=== PATIENT | female | born 1950 ===

== ENCOUNTER 2017-12-27 12:41 | Emergency (ER) | payer MEDICARE ==
[2017-12-27] MEDS ORDERED: Sodium Chloride 0.9% 500 ML IV STA (13:47)
[2017-12-27 14:28] LABS: BASO % 0.2 % (0.0-2.0); EOS # 0.3 K/uL (0.0-0.7); EOS % 3.1 % (0.0-4.0); HEMOGLOBIN 12.4 g/dL (12.0-16.0); LYMPH # 2.1 K/uL (1.0-4.3); LYMPH % 20.7 % (20.0-40.0); MEAN CELL VOLUME 90.9 fl (81.0-99.0); MEAN CORPUSCULAR HEMOGLOBIN 30.2 pg (27.0-31.0); MEAN CORPUSCULAR HGB CONC 33.2 g/dL (33.0-37.0); MEAN PLATELET VOLUME 7.6 fl (7.2-11.7); MONO # 0.5 K/uL (0.0-0.8); MONO % 5.2 % (0.0-10.0); NEUT # 7.2 K/uL (1.8-7.0); NEUT % 70.8 % (50.0-75.0); RBC 4.11 Mil/uL (3.80-5.20); RED CELL DISTRIBUTION WIDTH 14.7 % (11.5-14.5); WHITE BLOOD COUNT 10.1 K/uL (4.8-10.8)
[2017-12-27 14:42] LABS: ALBUMIN 3.9 g/dL (3.5-5.0); ALT/SGPT 26 U/L (9-52); AST/SGOT 24 U/L (14-36); BLOOD UREA NITROGEN 17 mg/dl (7-17); CALCIUM 9.3 mg/dL (8.4-10.2); GFR AFRICAN-AMERICAN > 60; GFR NON-AFRICAN AMERICAN > 60; LIPASE 68 U/L (23-300)
--- NOTE | 2017-12-27 15:23 | ED PDOC ---
HPI: Abdomen Time Seen by Provider: 12/27/17 13:39 Chief Complaint (Nursing): Abdominal Pain Chief Complaint (Provider): abdominal pain History Per: Patient History/Exam Limitations: no limitations Onset/Duration Of Symptoms: Hrs (this morning) Current Symptoms Are (Timing): Still Present Location Of Pain/Discomfort: Epigastric Associated Symptoms: Vomiting, Diarrhea (x4) Additional Complaint(s): Mildred Guzmán is a 67 year old female, with a past medical history of HTN and gastritis, who presents to the emergency department for evaluation of epigastric pain onset since this morning associated with nausea and x4 episodes of diarrhea. Patient took Motrin and Omeprazole with mild improvement of symptoms. Patient states on August she went to [facility] and developed similar symptoms there. They did bloodwork and was advised to go to the hospital if symptoms developed again. She denies any fever, chills, vomiting or surgeries to the abdomen. No further medical complaints. PMD: Amairani Rios Past Medical History Reviewed: Historical Data, Nursing Documentation, Vital Signs Vital Signs: Last Vital Signs Temp 98.3 F 12/27/17 19:33 Pulse 71 12/27/17 19:33 Resp 18 12/27/17 19:33 BP 128/71 12/27/17 19:33 Pulse Ox 99 12/27/17 19:33 - Medical History PMH: Asthma, Gastritis, HTN, Hyperlipidemia, Hypothyroidism - Surgical History Surgical History: Denies: Pacemaker - Family History Family History: States: Unknown Family Hx - Home Medications Home Medications: Ambulatory Orders Medication Instructions Recorded Fenofibrate [Tricor] 145 mg PO DAILY 08/25/13 Hydrochlorothiazide 25 mg PO DAILY 08/25/13 Ibuprofen 600 mg PO TID PRN 08/25/13 Levothyroxine Sodium 25 mcg PO DAILY 08/25/13 [Levothyroxine] Lorazepam 1 mg PO HS PRN 08/25/13 Pantoprazole [Protonix] 40 mg PO DAILY 08/25/13 Potassium Chloride [Micro-K Ls] 20 meq PO DAILY 08/25/13 Acetaminophen/Hydrocodone Bi 1 tab PO Q6H PRN 08/26/13 [Vicodin 300 mg-5 mg] Dicyclomine [Bentyl] 20 mg PO Q12 PRN #20 tab 07/16/15 Ondansetron ODT [Zofran ODT] 4 mg PO Q6H PRN #16 odt 07/16/15 Sucralfate [Carafate] 1 gm PO TID PRN #30 tablet 12/27/17 - Allergies Allergies/Adverse Reactions: Allergies Allergy/AdvReac Type Severity Reaction Status Date / Time No Known Allergies Allergy Verified 12/27/17 12:51 Review of Systems ROS Statement: Except As Marked, All Systems Reviewed And Found Negative Constitutional: Negative for: Fever, Chills Gastrointestinal: Positive for: Nausea, Abdominal Pain, Diarrhea (x4). Negative for: Vomiting Physical Exam - Reviewed Nursing Documentation Reviewed: Yes Vital Signs Reviewed: Yes - Physical Exam Comments: GENERAL APPEARANCE: Patient is awake, alert, oriented x 3, in no acute distress. SKIN: Warm, dry; (-) cyanosis. EYES: (-) conjunctival pallor, (-) scleral icterus. ENMT: Mucous membranes moist. NECK: (-) tenderness, (-) stiffness, (-) lymphadenopathy. CHEST AND RESPIRATORY: (-) rales, (-) rhonchi, (-) wheezes; breath sounds equal bilaterally. HEART AND CARDIOVASCULAR: (-) irregularity; (-) murmur, (-) gallop. ABDOMEN AND GI: (-) distention. Bowel sounds active; (-) epigastric tenderness , (-) guarding, (-) rebound, (-) palpable masses, (-) CVA tenderness. (-) Goodwin 's sign EXTREMITIES: (-) deformity, (-) edema, (+) distal pulses. NEURO AND PSYCH: Mental status as above; (-) focal findings. - Laboratory Results Result Diagrams: 12/27/17 14:20 12/27/17 14:20 - ECG O2 Sat by Pulse Oximetry: 98 (RA) Pulse Ox Interpretation: Normal Medical Decision Making Medical Decision Making: Time: 13:39 Initial Impression: Abdominal pain Initial Plan: --CMP --Lipase --Urine dipstick --CBC w/ differential --Sodium Chloride 500 ml IV 500 mls/hr --Pepcid 20 mg IVP --Zofran Inj 4 mg IVP --Abdomen Limited (GB Included) [US] --Reevaluation Uhcg (-) Udip (-) nitrates/leuks, (+) blood Labs reviewed and wnl. 18:00 Abdominal ultrasound FINDINGS: LIVER: Measures 16.8 cm in length. Normal echogenicity of the liver parenchyma. No mass. No intrahepatic bile duct dilatation. GALLBLADDER: Unremarkable. No gallstones. COMMON BILE DUCT: Measures 5 mm. No stones. No dilatation. PANCREAS: Unremarkable as visualized. No mass. No ductal dilatation. RIGHT KIDNEY: Measures 10.5 cm in length. Normal echogenicity. No calculus, mass, or hydronephrosis. AORTA: No aneurysmal dilatation. IVC: Unremarkable. OTHER FINDINGS: None . IMPRESSION: Unremarkable examination. No evidence of cholelithiasis or cholecystitis. On re-evaluation, patient reports improvement of symptoms, denies any abdominal pain and nausea. On exam, patient remains AAOx3, in no acute distress. Abdomen soft, non-tender, no guarding. VS: BP 128/71 P 71 R 18 T 98 O2sat 99%RA. Patient is stable for discharge. Diagnostic results d/w the patient in great detail. Diagnosis of dyspepsia d/w the patient. Based on history, exam and diagnostic results, plan will be for outpatient follow up. Patient instructed to follow-up with pmd and GI in 1-2 days without fail. Continue taking omeprazole. Advised to take medication as prescribed. Return to the emergency room at any time for any new or worsening symptoms. Patient states she fully agrees with and understands discharge instructions. States that she agrees with the plan and disposition. Verbalized and repeated discharge instructions and plan. I have given the patient opportunity to ask any additional questions. ----- Scribe Attestation: Documented by Miles Rodriguez, acting as a scribe for Pati Medrano PA-C. Provider Scribe Attestation: All medical record entries made by the Scribe were at my direction and personally dictated by me. I have reviewed the chart and agree that the record accurately reflects my personal performance of the history, physical exam, medical decision making, and the department course for this patient. I have also personally directed, reviewed, and agree with the discharge instructions and disposition. Disposition - Clinical Impression Clinical Impression: Abdominal pain, Dyspepsia - Patient ED Disposition Is Patient to be Admitted: No Counseled Patient/Family Regarding: Studies Performed, Diagnosis, Need For Followup, Rx Given - Disposition Disposition: Routine/Home Disposition Time: 19:15 Condition: STABLE Additional Instructions: Thank you for letting us take care of you today. You were treated for abdominal pain, dyspepsia. The emergency medical care you received today was directed towards the acute presenting symptoms. If you were prescribed any medication, please fill it and give as directed. It may take several days for your symptoms to resolve. Return to the Emergency Department at any time if symptoms worsen, do not improve, or if any other problems arise. Please contact your doctor in 2 days for re-evaluation and follow up. Bring any paperwork you were given at discharge with you along with any medications to your follow up visit. Our treatment cannot replace ongoing medical care by a primary care provider (PCP) outside of the emergency department. Thank you for allowing the [facility] team to be part of your care today. Prescriptions: Sucralfate [Carafate] 1 gm PO TID PRN #30 tablet PRN Reason: Other Instructions: Dyspepsia, Acute Abdomen (Belly Pain), Adult (DC) Forms: [employer] (Japanese) Print Language: AUSTRIAN
--- NOTE | 2017-12-27 18:01 | US ---
Date of service: 12/27/2017 HISTORY: epigastric pain, r/o biliary colic COMPARISON: None. TECHNIQUE: Sonographic evaluation of the right upper quadrant of the abdomen. FINDINGS: LIVER: Measures 16.8 cm in length. Normal echogenicity of the liver parenchyma. No mass. No intrahepatic bile duct dilatation. GALLBLADDER: Unremarkable. No gallstones. COMMON BILE DUCT: Measures 5 mm. No stones. No dilatation. PANCREAS: Unremarkable as visualized. No mass. No ductal dilatation. RIGHT KIDNEY: Measures 10.5 cm in length. Normal echogenicity. No calculus, mass, or hydronephrosis. AORTA: No aneurysmal dilatation. IVC: Unremarkable. OTHER FINDINGS: None . IMPRESSION: Unremarkable examination. No evidence of cholelithiasis or cholecystitis.
[2017-12-27 19:34] VITALS: BP 128/71; PULSE 71; RESP 18; TEMP 98.3
[2017-12-28 11:27] VITALS: O2SAT 98
== END 2017-12-27 19:35 | disposition home or self-care (01) ==
LOC: H.ER 12:41
DX: R10.13 Epigastric pain (principal); I10 Essential (primary) hypertension; J45.909 Unspecified asthma, uncomplicated
CPT/HCPCS: 76705; 80053; 83690; 85025; 96374; 96375; 99285; J2405; J7030

== ENCOUNTER 2018-02-20 08:25 | Emergency (ER) | payer MEDICARE, MEDICAID ==
[2018-02-20 08:34] VITALS: RESP 17; TEMP 98.1; O2SAT 98; BMI 35.5
[2018-02-20] MEDS ORDERED: Sodium Chloride 0.9% 1,000 ML IV STA (09:10)
--- NOTE | 2018-02-20 09:17 | ED PDOC ---
Syncope/Near Syncope/Dizziness Time Seen by Provider: 02/20/18 08:53 Chief Complaint (Nursing): Dizziness/Lightheaded Chief Complaint (Provider): Dizziness/Lightheaded History Per: Patient History/Exam Limitations: no limitations Onset/Duration Of Symptoms: Hrs Fall Associated With With Symptoms: No Additional Complaint(s): 67 years old female with history of vertigo and hypertension presents to ER for evaluation of dizziness associated with nausea, vomiting and headache onset this morning. Patient reports symptoms worsen when leaning or turning head. She denies any chest pain, fall or loss of consciousness. PMD: Amairani Rios Past Medical History Reviewed: Historical Data, Nursing Documentation, Vital Signs Vital Signs: Last Vital Signs Temp 98.1 F 02/20/18 08:34 Pulse 90 02/20/18 08:34 Resp 17 02/20/18 08:34 BP 186/95 H 02/20/18 08:36 Pulse Ox 98 02/20/18 08:34 - Medical History PMH: Arthritis, Asthma, Gastritis, HTN, Hyperlipidemia, Hypothyroidism Other PMH: Vertigo - Surgical History Surgical History: No Surg Hx Denies: Pacemaker - Family History Family History: States: Unknown Family Hx - Social History Current smoker - smoking cessation education provided: No Alcohol: None Drugs: Denies - Home Medications Home Medications: Ambulatory Orders Medication Instructions Recorded Fenofibrate [Tricor] 145 mg PO DAILY 08/25/13 Hydrochlorothiazide 25 mg PO DAILY 08/25/13 Ibuprofen 600 mg PO TID PRN 08/25/13 Levothyroxine Sodium 25 mcg PO DAILY 08/25/13 [Levothyroxine] Lorazepam 1 mg PO HS PRN 08/25/13 Pantoprazole [Protonix] 40 mg PO DAILY 08/25/13 Potassium Chloride [Micro-K Ls] 20 meq PO DAILY 08/25/13 Acetaminophen/Hydrocodone Bi 1 tab PO Q6H PRN 08/26/13 [Vicodin 300 mg-5 mg] Dicyclomine [Bentyl] 20 mg PO Q12 PRN #20 tab 07/16/15 Ondansetron ODT [Zofran ODT] 4 mg PO Q6H PRN #16 odt 07/16/15 Sucralfate [Carafate] 1 gm PO TID PRN #30 tablet 12/27/17 Meclizine [Meclizine*] 25 mg PO Q8 #15 tab 02/20/18 - Allergies Allergies/Adverse Reactions: Allergies Allergy/AdvReac Type Severity Reaction Status Date / Time shellfish derived Allergy SWELLING Verified 02/20/18 08:36 Review of Systems ROS Statement: Except As Marked, All Systems Reviewed And Found Negative Constitutional: Negative for: Other (loss of consciousness) Cardiovascular: Negative for: Chest Pain Gastrointestinal: Positive for: Nausea, Vomiting Neurological: Positive for: Headache, Dizziness Physical Exam - Reviewed Nursing Documentation Reviewed: Yes Vital Signs Reviewed: Yes - Physical Exam Appears: Positive for: Non-toxic, No Acute Distress Head Exam: Positive for: ATRAUMATIC, NORMOCEPHALIC Skin: Positive for: Normal Color, Warm, Dry Eye Exam: Positive for: Normal appearance, EOMI, PERRL Neck: Positive for: Normal, Painless ROM, Supple Cardiovascular/Chest: Positive for: Regular Rate, Rhythm. Negative for: Murmur Respiratory: Positive for: Normal Breath Sounds. Negative for: Wheezing Extremity: Positive for: Normal ROM. Negative for: Pedal Edema, Swelling Neurologic/Psych: Positive for: Alert, Oriented (x3) - Laboratory Results Result Diagrams: 02/20/18 09:30 02/20/18 09:30 - ECG O2 Sat by Pulse Oximetry: 98 (RA) Pulse Ox Interpretation: Normal Medical Decision Making Medical Decision Making: Time: 909 Initial Plan: --EKG --CMP --CBC --Chest x-ray --Antivert 25 mg PO --NaCl 1,000 ml IV 100 mls/hr --Zofran 4 mg IVP 0945 Chest X-Ray FINDINGS: LUNGS: No active pulmonary disease. PLEURA: No significant pleural effusion identified, no pneumothorax apparent. CARDIOVASCULAR: Normal. OSSEOUS STRUCTURES: No significant abnormalities. VISUALIZED UPPER ABDOMEN: Mildly elevated left hemidiaphragm again evident. OTHER FINDINGS: None. IMPRESSION: No interval acute cardiopulmonary disease appreciated. Scribe Attestation: Documented by Debora Ruelas, acting as a scribe for Sunil Wu MD. Provider Scribe Attestation: All medical record entries made by the Scribe were at my direction and personally dictated by me. I have reviewed the chart and agree that the record accurately reflects my personal performance of the history, physical exam, medical decision making, and the department course for this patient. I have also personally directed, reviewed, and agree with the discharge instructions and disposition. Disposition - Clinical Impression Clinical Impression: Vertigo - Patient ED Disposition Is Patient to be Admitted: No Counseled Patient/Family Regarding: Studies Performed, Diagnosis, Need For Followup, Rx Given - Disposition Disposition: Routine/Home Disposition Time: 10:30 Condition: FAIR Prescriptions: Meclizine [Meclizine*] 25 mg PO Q8 #15 tab Instructions: Vertigo (a Type of Dizziness) Forms: [employer] (Italian) Print Language: OCCITAN
[2018-02-20 09:39] LABS: BASO % 0.5 % (0.0-2.0); EOS # 0.2 K/uL (0.0-0.7); EOS % 2.9 % (0.0-4.0); HEMOGLOBIN 12.7 g/dL (12.0-16.0); LYMPH # 1.8 K/uL (1.0-4.3); LYMPH % 22.9 % (20.0-40.0); MEAN CELL VOLUME 90.5 fl (81.0-99.0); MEAN CORPUSCULAR HEMOGLOBIN 31.1 pg (27.0-31.0); MEAN CORPUSCULAR HGB CONC 34.4 g/dL (33.0-37.0); MEAN PLATELET VOLUME 7.8 fl (7.2-11.7); MONO # 0.4 K/uL (0.0-0.8); NEUT # 5.5 K/uL (1.8-7.0); NEUT % 68.7 % (50.0-75.0); NRBC % 0.1 % (0.0-0.0); RBC 4.09 Mil/uL (3.80-5.20); RED CELL DISTRIBUTION WIDTH 14.3 % (11.5-14.5)
[2018-02-20 09:49] LABS: ALB/GLOB RATIO 0.9 (1.0-2.1); ALBUMIN 3.9 g/dL (3.5-5.0); ALT/SGPT 33 U/L (9-52); AST/SGOT 33 U/L (14-36); BLOOD UREA NITROGEN 17 mg/dl (7-17); CALCIUM 9.3 mg/dL (8.4-10.2); GFR NON-AFRICAN AMERICAN > 60
--- NOTE | 2018-02-20 09:49 | RAD ---
Date of service: 02/20/2018 HISTORY: cough COMPARISON: Chest radiographs 07/16/2015. FINDINGS: LUNGS: No active pulmonary disease. PLEURA: No significant pleural effusion identified, no pneumothorax apparent. CARDIOVASCULAR: Normal. OSSEOUS STRUCTURES: No significant abnormalities. VISUALIZED UPPER ABDOMEN: Mildly elevated left hemidiaphragm again evident. OTHER FINDINGS: None. IMPRESSION: No interval acute cardiopulmonary disease appreciated.
[2018-02-20 10:01] VITALS: BP 151/90; PULSE 61
--- NOTE | 2018-02-20 13:42 | CARD ---
APPROVED REPORT Date of service: 02/20/2018 EKG Measurement Heart [id number] <Conclusion> Sinus bradycardia with sinus arrhythmia Minimal voltage criteria for LVH, may be normal variant Borderline ECG
== END 2018-02-20 10:38 | disposition home or self-care (01) ==
LOC: H.ER 08:25
DX: R42 Dizziness and giddiness (principal); I10 Essential (primary) hypertension; E03.9 Hypothyroidism, unspecified; E78.5 Hyperlipidemia, unspecified
CPT/HCPCS: 71045; 80053; 85025; 93005; 96361; 96374; 99284; J2405; J7030

== ENCOUNTER 2018-05-06 11:34 | Emergency (ER) | payer MEDICARE, MEDICAID ==
[2018-05-06 11:35] VITALS: BMI 35.5
[2018-05-06 11:45] VITALS: PULSE 82; RESP 20; TEMP 98.1; O2SAT 99
[2018-05-06] MEDS ORDERED: Albuterol-Ipratrop 3 mg / 0.5 (3 ml) UD IH STA (13:18)
[2018-05-06] MEDS ORDERED: Albuterol-Ipratrop 3 mg / 0.5 (3 ml) UD ONE (13:29)
[2018-05-06] MEDS ORDERED: Sodium Chloride 0.9% 1,000 ML IV STA (13:33)
--- NOTE | 2018-05-06 14:03 | RAD ---
Date of service: 05/06/2018 HISTORY: Cough COMPARISON: 02/20/2018. TECHNIQUE: Chest PA and lateral FINDINGS: LINES AND TUBES: None. LUNG AND PLEURA: The lungs are well inflated and clear. No pleural effusion or pneumothorax. HEART AND MEDIASTINUM: The heart is not enlarged. No aortic atherosclerotic calcification present. The hilar and mediastinal contours are within normal limits. SKELETAL STRUCTURES: The bony structures are within normal limits for the patient's age. VISUALIZED UPPER ABDOMEN: Normal. OTHER FINDINGS: None. IMPRESSION: No active pulmonary disease.
[2018-05-06 14:31] LABS: BASO % 0.3 % (0.0-2.0); EOS # 0.2 K/uL (0.0-0.7); EOS % 2.7 % (0.0-4.0); LYMPH # 2.4 K/uL (1.0-4.3); LYMPH % 32.7 % (20.0-40.0); MEAN CELL VOLUME 93.6 fl (81.0-99.0); MEAN CORPUSCULAR HEMOGLOBIN 30.6 pg (27.0-31.0); MEAN CORPUSCULAR HGB CONC 32.7 g/dL (33.0-37.0); MEAN PLATELET VOLUME 8.2 fl (7.2-11.7); MONO # 0.5 K/uL (0.0-0.8); MONO % 6.1 % (0.0-10.0); NEUT # 4.3 K/uL (1.8-7.0); NEUT % 58.2 % (50.0-75.0); NRBC % 0.1 % (0.0-0.0); RBC 3.93 Mil/uL (3.80-5.20); RED CELL DISTRIBUTION WIDTH 13.7 % (11.5-14.5); WHITE BLOOD COUNT 7.4 K/uL (4.8-10.8)
--- NOTE | 2018-05-06 14:37 | CT ---
Date of service: 05/06/2018 PROCEDURE: CT HEAD WITHOUT CONTRAST. HISTORY: r/o bleed COMPARISON: None available. TECHNIQUE: Axial computed tomography images were obtained through the head/brain without intravenous contrast. Radiation dose: Total exam DLP = 823.08 mGy-cm. This CT exam was performed using one or more of the following dose reduction techniques: Automated exposure control, adjustment of the mA and/or kV according to patient size, and/or use of iterative reconstruction technique. FINDINGS: HEMORRHAGE: No intracranial hemorrhage. BRAIN: No mass effect or edema. Mild generalized cerebral atrophy suggested. No gross chronic microvascular ischemic changes. VENTRICLES: Unremarkable. No hydrocephalus. CALVARIUM: Unremarkable. PARANASAL SINUSES: Trace bilateral ethmoidal sinus mucosal inflammatory changes; no more significant inflammatory changes. MASTOID AIR CELLS: Unremarkable as visualized. No inflammatory changes. OTHER FINDINGS: None. IMPRESSION: No intracranial hemorrhage or mass effect. Mild cerebral atrophy.
[2018-05-06 14:41] LABS: ALBUMIN 3.9 g/dL (3.5-5.0); BLOOD UREA NITROGEN 20 mg/dl (7-17); CALCIUM 8.6 mg/dL (8.4-10.2); GFR NON-AFRICAN AMERICAN > 60
[2018-05-06 14:42] LABS: ALT/SGPT 21 U/L (9-52); AST/SGOT 31 U/L (14-36)
--- NOTE | 2018-05-06 18:02 | ED PDOC ---
HPI: General Adult Time Seen by Provider: 05/06/18 13:11 Chief Complaint (Nursing): Dizziness/Lightheaded Chief Complaint (Provider): Dizziness History Per: Patient History/Exam Limitations: no limitations Onset/Duration Of Symptoms: Days Have you had recent travel within the past 21 days to any of the following countries: [place], [place], [place] or [place]?: No Current Symptoms Are (Timing): Still Present Additional Complaint(s): 67 yo female with history of HTN, gastritis and hypothyroid disease presents for evaluation of dizziness for 4 months, intermittent. Pt states she was seen in ER initially for same symptoms and was given meclizine. Pt states it did work last night however this morning she felt dizziness again. Pt also reports 2 days of cough, without fever/chill.s Past Medical History Reviewed: Historical Data, Nursing Documentation, Vital Signs Vital Signs: Last Vital Signs Temp 98.1 F 05/06/18 11:42 Pulse 82 05/06/18 11:42 Resp 20 05/06/18 11:42 BP 125/63 05/06/18 11:42 Pulse Ox 99 05/06/18 11:42 - Medical History PMH: Arthritis, Asthma, Gastritis, HTN, Hyperlipidemia, Hypothyroidism - Surgical History Surgical History: Denies: Pacemaker - Family History Family History: States: Unknown Family Hx - Home Medications Home Medications: Ambulatory Orders Medication Instructions Recorded Fenofibrate [Tricor] 145 mg PO DAILY 08/25/13 Hydrochlorothiazide 25 mg PO DAILY 08/25/13 Ibuprofen 600 mg PO TID PRN 08/25/13 Levothyroxine Sodium 25 mcg PO DAILY 08/25/13 [Levothyroxine] Lorazepam 1 mg PO HS PRN 08/25/13 Pantoprazole [Protonix] 40 mg PO DAILY 08/25/13 Potassium Chloride [Micro-K Ls] 20 meq PO DAILY 08/25/13 Acetaminophen/Hydrocodone Bi 1 tab PO Q6H PRN 08/26/13 [Vicodin 300 mg-5 mg] Dicyclomine [Bentyl] 20 mg PO Q12 PRN #20 tab 07/16/15 Ondansetron ODT [Zofran ODT] 4 mg PO Q6H PRN #16 odt 07/16/15 Sucralfate [Carafate] 1 gm PO TID PRN #30 tablet 12/27/17 Meclizine [Meclizine*] 25 mg PO Q8 #15 tab 02/20/18 Meclizine [Meclizine*] 25 mg PO Q6 PRN #30 tab 05/06/18 - Allergies Allergies/Adverse Reactions: Allergies Allergy/AdvReac Type Severity Reaction Status Date / Time shellfish derived Allergy SWELLING Verified 02/20/18 08:36 Review of Systems ROS Statement: Except As Marked, All Systems Reviewed And Found Negative Constitutional: Negative for: Fever, Chills, Sweats, Weakness ENT: Negative for: Ear Pain, Ear Discharge Cardiovascular: Negative for: Chest Pain, Palpitations Respiratory: Positive for: Cough Gastrointestinal: Negative for: Nausea, Vomiting, Abdominal Pain, Diarrhea Genitourinary Female: Negative for: Dysuria, Frequency, Incontinence Neurological: Positive for: Dizziness. Negative for: Weakness, Numbness, Headache Physical Exam - Reviewed Nursing Documentation Reviewed: Yes Vital Signs Reviewed: Yes - Physical Exam Appears: Positive for: Well, Non-toxic, No Acute Distress Head Exam: Positive for: ATRAUMATIC, NORMAL INSPECTION, NORMOCEPHALIC Skin: Positive for: Normal Color, Warm, DRY Eye Exam: Positive for: Normal appearance ENT: Positive for: Normal ENT Inspection Neck: Positive for: Normal, Painless ROM Cardiovascular/Chest: Positive for: Regular Rate, Rhythm Respiratory: Positive for: Normal Breath Sounds. Negative for: Accessory Muscle Use, Respiratory Distress Back: Positive for: Normal Inspection Extremity: Positive for: Normal ROM Neurologic/Psych: Positive for: Alert, global clinical leader II-XII, Oriented, Gait. Negative for: Motor/Sensory Deficits, Cerebellar Tests, Aphasia, Facial Droop - Laboratory Results Result Diagrams: 05/06/18 14:23 05/06/18 14:23 - ECG O2 Sat by Pulse Oximetry: 99 Pulse Ox Interpretation: Normal Medical Decision Making Medical Decision Making: Labs, head CT and CXR normal. Disposition - Clinical Impression Clinical Impression: Vertigo, Cough - Patient ED Disposition Is Patient to be Admitted: No Counseled Patient/Family Regarding: Diagnosis, Need For Followup - Disposition Disposition: Routine/Home Disposition Time: 18:03 Condition: GOOD Prescriptions: Meclizine [Meclizine*] 25 mg PO Q6 PRN #30 tab PRN Reason: Dizziness Instructions: Vertigo (a Type of Dizziness) Print Language: ENGLISH
[2018-05-06 18:27] VITALS: BP 126/75
--- NOTE | 2018-05-07 00:24 | CARD ---
APPROVED REPORT Date of service: 05/06/2018 EKG Measurement Heart [id number] <Conclusion> Sinus rhythm with premature atrial complexes with aberrant conduction Left ventricular hypertrophy with repolarization abnormality Abnormal ECG
== END 2018-05-06 18:03 | disposition home or self-care (01) ==
LOC: H.ER 11:34
DX: R42 Dizziness and giddiness (principal); R05 Cough; I10 Essential (primary) hypertension; J45.909 Unspecified asthma, uncomplicated; E03.9 Hypothyroidism, unspecified
CPT/HCPCS: 70450; 71046; 80053; 84443; 84484; 85025; 93005; 96360; 99285; J7030

== ENCOUNTER 2018-05-28 09:10 | Emergency (ER) | payer MEDICARE, MEDICAID ==
[2018-05-28 09:11] VITALS: BMI 35.5
[2018-05-28] MEDS ORDERED: Sodium Chloride 0.9% 1,000 ML IV STA (09:56)
--- NOTE | 2018-05-28 10:08 | ED PDOC ---
HPI: Abdomen Time Seen by Provider: 05/28/18 09:49 Chief Complaint (Nursing): Abdominal Pain History Per: Patient, Family History/Exam Limitations: no limitations Onset/Duration Of Symptoms: Days Outside of [place] travel?: No Current Symptoms Are (Timing): Still Present Location Of Pain/Discomfort: Epigastric Associated Symptoms: Nausea, Vomiting, Diarrhea. denies: Fever Additional Complaint(s): Hx of gastritis, vertigo, HTN, HLD presenting with epigastric pain and vomiting. States that she has vomited and had more diarrhea than she can count starting at 10PM yesterday. States it is watery, non-bloody, non-bilious. Denies fevers. States she was unable to tolerate even water. Denies abdominal surgeries. PMD: Dr. Amairani Rios Past Medical History Reviewed: Historical Data, Nursing Documentation, Vital Signs Vital Signs: Last Vital Signs Temp 98 F 05/28/18 09:47 Pulse 91 H 05/28/18 09:47 Resp 20 05/28/18 09:47 BP 129/87 05/28/18 09:47 Pulse Ox 97 05/28/18 09:47 - Medical History PMH: Arthritis, Asthma, Gastritis, HTN, Hyperlipidemia, Hypothyroidism Denies: Chronic Kidney Disease - Surgical History Surgical History: Denies: Pacemaker - Family History Family History: States: Unknown Family Hx - Immunization History Hx Tetanus Toxoid Vaccination: No Hx Influenza Vaccination: No Hx Pneumococcal Vaccination: No - Home Medications Home Medications: Ambulatory Orders Medication Instructions Recorded Fenofibrate [Tricor] 145 mg PO DAILY 08/25/13 Hydrochlorothiazide 25 mg PO DAILY 08/25/13 Ibuprofen 600 mg PO TID PRN 08/25/13 Levothyroxine Sodium 25 mcg PO DAILY 08/25/13 [Levothyroxine] Lorazepam 1 mg PO HS PRN 08/25/13 Pantoprazole [Protonix] 40 mg PO DAILY 08/25/13 Potassium Chloride [Micro-K Ls] 20 meq PO DAILY 08/25/13 Acetaminophen/Hydrocodone Bi 1 tab PO Q6H PRN 08/26/13 [Vicodin 300 mg-5 mg] Dicyclomine [Bentyl] 20 mg PO Q12 PRN #20 tab 07/16/15 Ondansetron ODT [Zofran ODT] 4 mg PO Q6H PRN #16 odt 07/16/15 Sucralfate [Carafate] 1 gm PO TID PRN #30 tablet 12/27/17 Meclizine [Meclizine*] 25 mg PO Q8 #15 tab 02/20/18 Meclizine [Meclizine*] 25 mg PO Q6 PRN #30 tab 05/06/18 Ondansetron ODT [Zofran ODT] 4 mg PO Q6 PRN #10 odt 05/28/18 Ranitidine HCl [Zantac] 150 mg PO BID #20 tablet 05/28/18 - Allergies Allergies/Adverse Reactions: Allergies Allergy/AdvReac Type Severity Reaction Status Date / Time shellfish derived Allergy SWELLING Verified 02/20/18 08:36 Review of Systems ROS Statement: Except As Marked, All Systems Reviewed And Found Negative Constitutional: Negative for: Chills Gastrointestinal: Positive for: Nausea, Vomiting, Abdominal Pain, Diarrhea Physical Exam - Reviewed Nursing Documentation Reviewed: Yes Vital Signs Reviewed: Yes - Physical Exam Appears: Positive for: Well, Non-toxic, No Acute Distress Head Exam: Positive for: ATRAUMATIC, NORMAL INSPECTION, NORMOCEPHALIC Skin: Positive for: Normal Color, Warm, DRY Eye Exam: Positive for: EOMI, Normal appearance, PERRL ENT: Positive for: Normal ENT Inspection Neck: Positive for: Normal, Painless ROM Cardiovascular/Chest: Positive for: Regular Rate, Rhythm Respiratory: Positive for: CNT, Normal Breath Sounds Gastrointestinal/Abdominal: Positive for: Normal Exam, Soft, Tenderness (Mild epigastric tenderness) Back: Positive for: Normal Inspection Extremity: Positive for: Normal ROM Neurologic/Psych: Positive for: Alert, Oriented - Laboratory Results Result Diagrams: 05/28/18 10:15 05/28/18 10:15 - ECG O2 Sat by Pulse Oximetry: 97 Pulse Ox Interpretation: Normal Medical Decision Making Medical Decision MakinAM Hx of HTN, HLD, Gastritis, vertigo presenting with epigastric pain, nausea, vomi ting, diarrhea --Patient well appearing, ambulating to the bathroom, vitals stable, nontoxic in appearance --Differential includes but not limited to: gastritis, gastroenteritis, pancreatitis, less likely biliary pathology, cololitis, diverticulitis --Will check labs, treat symptomatically, and re-eval 1200PM --Patient states she's still having nausea --Will order Reglan 10mg IVPB and U/S or RUQ 1300 Patient being endorsed from provider to Dr. Joe. Disposition - Clinical Impression Clinical Impression: Abdominal pain, Elevated LFTs - Patient ED Disposition Is Patient to be Admitted: Transfer of Care Discussed With Dr.: Keenan Joe III - Disposition Referrals: Drew John MD [Staff Provider] - Disposition: Transfer of Care Disposition Time: 13:00 Condition: STABLE Additional Instructions: Return to ER for any worse or new symptoms, pain, fever or any concern. Have liver function rechecked in 2 weeks, you may need further testing. Prescriptions: Ondansetron ODT [Zofran ODT] 4 mg PO Q6 PRN #10 odt PRN Reason: Nausea/Vomiting Ranitidine HCl [Zantac] 150 mg PO BID #20 tablet Instructions: Acute Abdomen (Belly Pain) Forms: [facility] (Bruneian) Print Language: PASHTO
[2018-05-28 10:27] LABS: VENOUS BLOOD GAS BASE EXCESS 0.6 mmol/L (0.0-2.0); VENOUS BLOOD GAS PCO2 52 mmHg (40-60); VENOUS BLOOD GAS PO2 26 mm/Hg (30-55); VENOUS BLOOD PH 7.33 (7.32-7.43)
[2018-05-28 10:38] LABS: HEMOGLOBIN 13.1 g/dL (12.0-16.0); MEAN CELL VOLUME 92.8 fl (81.0-99.0); MEAN CORPUSCULAR HEMOGLOBIN 30.4 pg (27.0-31.0); MEAN CORPUSCULAR HGB CONC 32.8 g/dL (33.0-37.0); RBC 4.29 Mil/uL (3.80-5.20); RED CELL DISTRIBUTION WIDTH 14.2 % (11.5-14.5); WHITE BLOOD COUNT 10.9 K/uL (4.8-10.8)
[2018-05-28 10:58] LABS: ALBUMIN 4.5 g/dL (3.5-5.0); ALT/SGPT 24 U/L (9-52); AST/SGOT 40 U/L (14-36); BILIRUBIN,DIRECT 0.2 mg/ml (0.0-0.4); BLOOD UREA NITROGEN 22 mg/dl (7-17); CALCIUM 9.6 mg/dL (8.4-10.2); GFR NON-AFRICAN AMERICAN > 60; LIPASE 55 U/L (23-300)
--- NOTE | 2018-05-28 13:18 | ED PDOC ---
- Laboratory Results Result Diagrams: 05/28/18 10:15 05/28/18 10:15 Lab Results: pO2 26 mm/Hg (30-55) L 05/28/18 10:21 VBG pH 7.33 (7.32-7.43) 05/28/18 10:21 VBG pCO2 52 mmHg (40-60) 05/28/18 10:21 VBG HCO3 23.9 mmol/L 05/28/18 10:21 VBG Total CO2 29.0 mmol/L (22-28) H 05/28/18 10:21 VBG O2 Sat (Calc) 50.0 % (40-65) 05/28/18 10:21 VBG Base Excess 0.6 mmol/L (0.0-2.0) 05/28/18 10:21 VBG Potassium 3.9 mmol/L (3.6-5.2) 05/28/18 10:21 Sodium 136.0 mmol/L (132-148) 05/28/18 10:21 Chloride 104.0 mmol/L (98-107) 05/28/18 10:21 Glucose 125 mg/dL (65-105) H 05/28/18 10:21 Lactate 1.2 mmol/L (0.7-2.1) 05/28/18 10:21 FiO2 21.0 % 05/28/18 10:21 Total Bilirubin 0.8 mg/dl (0.2-1.3) 05/28/18 10:15 Direct Bilirubin 0.2 mg/ml (0.0-0.4) 05/28/18 10:15 AST 40 U/L (14-36) H D 05/28/18 10:15 ALT 24 U/L (9-52) 05/28/18 10:15 Alkaline Phosphatase 145 U/L (38-126) H D 05/28/18 10:15 Total Protein 8.9 G/DL (6.3-8.2) H 05/28/18 10:15 Albumin 4.5 g/dL (3.5-5.0) 05/28/18 10:15 Globulin 4.4 gm/dL (2.2-3.9) H 05/28/18 10:15 Albumin/Globulin Ratio 1.0 (1.0-2.1) 05/28/18 10:15 Lipase 55 U/L (23-300) 05/28/18 10:15 - ECG O2 Sat by Pulse Oximetry: 97 Medical Decision Making Medical Decision Making: Time: 1300 Patient is endorsed to provider from Dr. Reinoso. Pending US. Time: 1350 FINDINGS: LIVER: Enlarged measuring approximately 19.5 cm in length. Smooth contour however increased echotexture consistent with fatty infiltration although other hepatocellular disease process not excluded. Echogenicity of the liver parenchyma. No mass. No intrahepatic bile duct dilatation. GALLBLADDER: Unremarkable. No gallstones. No pericholecystic fluid collections or sonographic Goodwin sign COMMON BILE DUCT: Measures 3.6 mm. No stones. No dilatation. PANCREAS: Pancreas poorly delineated due to body habitus and bowel gas. RIGHT KIDNEY: Measures 11.5 x 5.3 x 4.2 cm in length. Normal echogenicity. No calculus, mass, or hydronephrosis. AORTA: No aneurysmal dilatation. IVC: Unremarkable. OTHER FINDINGS: None . IMPRESSION: Limited study. Hepatomegaly with increased hepatic echotexture likely due to fatty infiltration however other infiltrative hepatocellular disease process not excluded. No evidence of cholelithiasis. improved and denies symptoms at 350p, abdomen nontender re-eval, no narcotics given. She already sees Dr John for GI, recommended followup for US and LFT findings. Explained to son on request of patient. Scribe Attestation: Documented by Leonel Palomino, acting as a scribe for Keenan Joe III, DO. Provider Scribe Attestation: All medical record entries made by the Scribe were at my direction and personally dictated by me. I have reviewed the chart and agree that the record accurately reflects my personal performance of the history, physical exam, medical decision making, and the department course for this patient. I have also personally directed, reviewed, and agree with the discharge instructions and disposition. Disposition Counseled Patient/Family Regarding: Studies Performed - Clinical Impression Clinical Impression: Abdominal pain, Elevated LFTs - POA Present On Arrival: None - Disposition Referrals: Drew John MD [Staff Provider] - Disposition: Routine/Home Disposition Time: 15:55 Condition: STABLE Additional Instructions: Return to ER for any worse or new symptoms, pain, fever or any concern. Have liver function rechecked in 2 weeks, you may need further testing. Prescriptions: Ondansetron ODT [Zofran ODT] 4 mg PO Q6 PRN #10 odt PRN Reason: Nausea/Vomiting Ranitidine HCl [Zantac] 150 mg PO BID #20 tablet Instructions: Acute Abdomen (Belly Pain) Forms: [facility] (Portuguese) Print Language: [place]ISH
--- NOTE | 2018-05-28 13:54 | US ---
Date of service: 05/28/2018 HISTORY: Epigastric pain and vomiting COMPARISON: Comparison made with prior right upper quadrant ultrasound 12/27/2017.. TECHNIQUE: Sonographic evaluation of the right upper quadrant of the abdomen. FINDINGS: LIVER: Enlarged measuring approximately 19.5 cm in length. Smooth contour however increased echotexture consistent with fatty infiltration although other hepatocellular disease process not excluded. Echogenicity of the liver parenchyma. No mass. No intrahepatic bile duct dilatation. GALLBLADDER: Unremarkable. No gallstones. No pericholecystic fluid collections or sonographic Goodwin sign COMMON BILE DUCT: Measures 3.6 mm. No stones. No dilatation. PANCREAS: Pancreas poorly delineated due to body habitus and bowel gas. RIGHT KIDNEY: Measures 11.5 x 5.3 x 4.2 cm in length. Normal echogenicity. No calculus, mass, or hydronephrosis. AORTA: No aneurysmal dilatation. IVC: Unremarkable. OTHER FINDINGS: None . IMPRESSION: Limited study. Hepatomegaly with increased hepatic echotexture likely due to fatty infiltration however other infiltrative hepatocellular disease process not excluded. No evidence of cholelithiasis.
[2018-05-28 14:03] LABS: SQUAMOUS EPITHIAL < 1 /hpf (0-5); URINE BILIRUBIN NEGATIVE (NEGATIVE); URINE BLOOD MODERATE (NEGATIVE); URINE CLARITY SLIGHTY-CLOUDY (Clear); URINE COLOR YELLOW (YELLOW); URINE GLUCOSE (UA) NEG (NEGATIVE); URINE LEUKOCYTE ESTERASE NEG Leu/uL (Negative); URINE PROTEIN 100 mg/dL (NEGATIVE); URINE UROBILINOGEN 0.2-1.0 mg/dL (0.2-1.0)
[2018-05-28] MEDS ORDERED: Alum-Mag Hydrox-Simethicone Susp (30 mL) PO ONE (14:55)
[2018-05-28] MEDS ORDERED: Alum-Mag Hydrox-Simethicone Susp (30 mL) ONE (15:02)
[2018-05-28 16:05] VITALS: BP 148/82; PULSE 82; RESP 16; TEMP 98.1
[2018-05-30 04:25] VITALS: O2SAT 97
== END 2018-05-28 16:07 | disposition home or self-care (01) ==
LOC: H.ER 09:10
DX: R10.13 Epigastric pain (principal); R94.5 Abnormal results of liver function studies; E03.9 Hypothyroidism, unspecified; E78.5 Hyperlipidemia, unspecified; I10 Essential (primary) hypertension
CPT/HCPCS: 76705; 80048; 80076; 81003; 82803; 83690; 85027; 96361; 96374; 96375; 99284; J2405; J2765; J7030